=== PATIENT | male | born 1980 | race Caucasian/White ===

== ENCOUNTER 2023-12-15 14:33 | Inpatient (IN) | payer MEDICARE, MEDICAID, SELFPAY ==
[2023-12-15 16:30] VITALS: BMI 66.4
[2023-12-15 18:00] VITALS: BP 165/75; PULSE 99; RESP 16; TEMP 36.7; O2SAT 95
[2023-12-15 18:36] LABS: Neut%MD 58.4 %; Neutrophils Absolute Auto 6.1 x10*3/uL (2.0-8.3); WBCANC 10.4 X10*3/uL
--- NOTE | 2023-12-15 18:49 | PC.NURSE ---
Provider documentation supervisor must update REMS on this patient.
[2023-12-15] MEDS: Benztropine Mesylate 0.5 MG TABLET PO (23:21)
[2023-12-15] MEDS: cloZAPine 25 MG TABLET PO (23:21)
--- NOTE | 2023-12-15 23:24 | PC.ADMIT ---
Patient is a 43 year old single Setswana speaking male admitted as a CV admission to at 1445 and placed on 5 minute safety checks. Patient was pleasant and was cooperative with skin check. He was medically cleared in the ED at [facility], evaluated by [facility] and deemed in need of IPLOC secondary to paranoia that his mother is trying to poison him. The patient also believes his mother is trying to kill his father by poisoning him with vitamins. The father in 2019. Patient has a history of IPLOC at other hospitals, per his intake assessment. Patient said he was on M5 about 10 years ago . Medication compliance is questionable as patient unable to give the name of current meds and doses. When this racebook writer called the pharmacies he stated, [facility] and [facility], no current meds were noted at either pharmacy. He also said that he was not having any AH or VH, denied SI or HI. He ate dinner and said he was tired and went to bed. This racebook writer tried several times to get patient up to sign ROL, do the safety tool and sign a treatment plan. Each time the patient stated Just give me five minutes and I'll come out. He did take his HS medications. Patient denied any acute health issues. He has allergy to Haldol listed, but he also mentioned, in passing, an allergy to Seroquel. This needs to be verified with the patient when he is more awake.
[2023-12-16] MEDS: Acetaminophen 325 MG TABLET 650 MG PO (06:10)
[2023-12-16 07:31] LABS: MANUAL DIFF FLAG NO
[2023-12-16 07:35] LABS: Basophils Absolute Auto 0.1 X10*3/uL (0.0-0.2); Basophils Percent Auto 0.9 % (0-2); Eosinophils Absolute Auto 0.4 X10*3/uL (0.0-0.4); Eosinophils Percent Auto 3.9 % (0-4); Hematocrit 47.3 % (42.0-52.0); Hemoglobin 15.6 g/dl (14.0-18.0); Imm Gran Abs Auto 0.07 X10*3/uL (0.00-0.03); Imm Gran Pct Auto 0.8 % (0.0-0.4); Lymphocytes Absolute Auto 2.3 X10*3/uL (1.2-4.9); Lymphocytes Percent Auto 24.5 % (20-40); Mean Corpuscular Hemoglobin 28.8 pg (27.0-33.0); Mean Corpuscular Volume 87.4 fL (80.0-98.0); Mean Platelet Volume 9.3 fL (9.4-12.4); Monocytes Absolute Auto 0.7 X10*3/uL (0.1-1.2); Monocytes Percent Auto 7.8 % (2-11); Neutrophils Absolute Auto 5.8 x10*3/uL (2.0-8.3); Neutrophils Percent Auto 62.1 % (45-73); Platelet Count 332 X10*3/uL (160-400); Red Blood Count 5.41 X10*6/uL (4.60-5.80); Red Cell Distribution Width 13.1 % (11.0-16.0); White Blood Count 9.3 X10*3/uL (4.8-10.8)
[2023-12-16 08:00] VITALS: BP 134/88; PULSE 93; RESP 18; TEMP 36.4; O2SAT 90
[2023-12-16] MEDS: hydrOXYzine HCL 25 MG TABLET PO (08:12)
[2023-12-16 08:13] LABS: Alanine Aminotransferase 35 U/L (0-40); Alkaline Phosphatase 52 U/L (39-117); Anion Gap 14 (12-20); Aspartate Amino Transferase 23 U/L (5-37); Bilirubin Direct 0.2 mg/dL (0.0-0.5); Bilirubin Total 0.3 mg/dL (0.0-1.0); Blood Urea Nitrogen 12 mg/dL (9-16); Calcium 9.8 mg/dL (8.4-10.2); Carbon Dioxide 26 mmol/L (22-29); Chloride 104 mmol/L (96-108); Cholesterol 161 mg/dL (<200); Creatinine Clr Calc Pharmacy 217.9; Estimated Glomerular Filt Rate > 60; Glucose Fasting 90 mg/dL (60-99); HDL Cholesterol 39 mg/dL (>40); LDL Cholesterol Calculated 107 mg/dL (<100); Potassium 4.3 mmol/L (3.3-5.1); Sodium 140 mmol/L (135-145); Total Protein 7.4 g/dL (6.5-8.0); Triglycerides 78 mg/dL (<150)
[2023-12-16 08:28] LABS: Thyroid Stimulating Hormone 1.31 uIU/mL (0.32-4.0)
[2023-12-16 08:33] LABS: Estimated Average Glucose 114 mg/dL; Hemoglobin A1c % 5.6 % (<6.0)
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
[2023-12-16] MEDS: clonazePAM 1 MG TABLET PO (13:11)
[2023-12-16 17:50] VITALS: BP 138/63; PULSE 99; RESP 16; TEMP 36.8; O2SAT 99
--- NOTE | 2023-12-16 19:24 | HO.PM.IMCN ---
History of Present Illness Data of Consult Service Date: 12/16/23 Primary Care Provider: Beatriz Babcock MD [facility] Reason for consult: Admission H&P Pt is a 43-year-old male with a PMH significant for?schizophrenia and anxiety who is admitted to M5 psychiatry unit for paranoia and flight of ideas. Patient apparently believes that his mother was trying to poison him with medications that she was buying off the Internet. Patient also believed that his mother was attempting to kill his father by poisoning him with vitamins, though father in 2019. Medical consult for admission H&P. ?Patient seen and evaluated in room or patient is lying face down in bed with his head propped against the wall. Patient initially answers a few questions stating he has no PMH other than schizophrenia and anxiety. Denies any medical diagnoses and denies he is on any medical prescriptions. Patient denies any current medical complaints but refuses to answer any specific questions, saying he would like to be left so that he can try to sleep. Labs reviewed, grossly unremarkable. Review of Systems Review of Systems: Patient has no acute medical complaints at this time [facility] Social History Household Members: Family Housing: House Do you presently have visiting nurse or other home services: No Patient Tobacco Use Status: Current everyday Tobacco user Tobacco use type: Cigarette Cigarette Packs Per Day: 0.25 Cigarettes Per Day: 5.0 Years Smoked: 25 Smoked in Last 30 Days: Yes e-Cigarette/Vaping Use: Never Used Patient Interested in Nicotine Replacement: No (pt said I don't need it ) Patient Given Instructions on How to Stop Smoking: Yes Date Education Initiated: 12/15/23 Second Hand Smoke Exposure: No Use of substances other than those prescribed or required for medical reasons: No Currently Displaying Signs/Symptoms of Drug Intoxication Withdrawal: No Have you been hit, kicked, punched, or otherwise hurt by someone within the past year? If so, by whom?: No Do you feel safe in your current relationship?: No Current Relationship Is there a partner from a previous relationship who is making you feel unsafe now?: No Spiritual Healthcare Practices: unknown Restorationist Healthcare Practices: unknown Cultural Healthcare Practices: unknown Advance Directives: No Advance Directives Information Provided: No Do you have thoughts of harming others: None Do you have a plan to hurt others: No Plan Recently lost weight without trying: No Nutrition Risks: No Nutritional Risk Poor oral hygiene: No Meds Allergies Allergy/AdvReac Type Severity Reaction Status Date / Time haloperidol [From Haldol] AdvReac Unknown Unknown Unverified 12/15/23 15:13 Active Medications: Current Medications Acetaminophen (Acetaminophen 325 Mg Tablet) 650 mg PO Q6H PRN PRN Reason: Headache/Pain Mild Scale (1-3) Last Admin: 12/16/23 06:10 Dose: 650 mg Al Hydroxide/Mg Hydroxide (Magnesium Hydrox/Alum Hydrox 30 Ml Oral.Susp) 30 ml PO Q6H PRN PRN Reason: Heartburn/Nausea Benztropine Mesylate (Benztropine Mesylate 0.5 Mg Tablet) 0.5 mg PO BEDTIME JOCELIN Last Admin: 12/15/23 23:21 Dose: 0.5 mg Clonazepam (Clonazepam 1 Mg Tablet) 1 mg PO BID PRN PRN Reason: Anxiety Last Admin: 12/16/23 13:11 Dose: 1 mg Clozapine (Clozapine 25 Mg Tablet) 25 mg PO BEDTIME JOCELIN Last Admin: 12/15/23 23:21 Dose: 25 mg Hydroxyzine HCl (Hydroxyzine Hcl 25 Mg Tablet) 25 mg PO Q6H PRN PRN Reason: Anxiety Last Admin: 12/16/23 08:12 Dose: 25 mg Magnesium Hydroxide (Milk Of Magnesia 30 Ml Oral.Susp) 30 ml PO DAILY PRN PRN Reason: Constipation Olanzapine (Olanzapine 5 Mg Tablet) 5 mg PO TID PRN PRN Reason: agitation Trazodone HCl (Trazodone Hcl 50 Mg Tablet) 50 mg PO BEDTIME MRX1 PRN PRN Reason: Insomnia Physical Exam Vital Signs and Narrative: Vital Signs: Last Vital Signs Temp 98.2 F 12/16/23 17:50 Pulse 99 12/16/23 17:50 Resp 16 12/16/23 17:50 BP 138/63 12/16/23 17:50 Pulse Ox 99 12/16/23 17:50 O2 Del Method Room Air 12/16/23 17:50 BMI result Body Mass Index 66.4 Patient refuses to participate in physical exam Not in acute distress, speaking in full sentences Was seen to move all 4 extremities spontaneously Results Labs 12/16/23 07:18 12/16/23 07:18 Labs: Laboratory Results - last 24 hr 12/16/23 07:18 MCV 87.4 MCH 28.8 MCHC 33.0 RDW 13.1 Plt Count 332 MPV 9.3 L Immature Gran % (Auto) 0.8 H Neut % (Auto) 62.1 Lymph % (Auto) 24.5 [place] % (Auto) 7.8 Eos % (Auto) 3.9 Baso % (Auto) 0.9 Lymph # (Auto) 2.3 [place] # (Auto) 0.7 Eos # (Auto) 0.4 Baso # (Auto) 0.1 Abs Immat Gran (auto) 0.07 H Absolute Neuts (auto) 5.8 Absolute Nucleated RBC 0.000 Nucleated RBC % (auto) 0.0 Anion Gap 14 Estim Creat Clear Calc 217.9 Estimated GFR > 60 Fasting Glucose 90 Estimat Average Glucose 114 Hemoglobin A1c % 5.6 Calcium 9.8 Total Bilirubin 0.3 Direct Bilirubin 0.2 AST 23 ALT 35 Alkaline Phosphatase 52 Total Protein 7.4 Albumin 4.0 Triglycerides 78 Cholesterol 161 LDL Cholesterol, Calc 107 H HDL Cholesterol 39 L TSH 1.31 Assessment and Plan (1) Medical clearance for psychiatric admission: Status: Acute Plan Pt is a 43-year-old male with a PMH significant for?schizophrenia and anxiety who is admitted to M5 psychiatry unit for paranoia and flight of ideas. Patient apparently believes that his mother was trying to poison him with medications that she was buying off the Internet. Patient also believed that his mother was attempting to kill his father by poisoning him with vitamins, though father in 2019. Medical consult for admissio Mood disorder Plan as per Psychiatry Patient otherwise denies any chronic medical conditions or acute medical complaints at this time. Thank you for allowing us to participate in the care of this patient. Signing off at this time. Please re-consult if any acute complaints or issues arise.
[2023-12-16] MEDS: cloZAPine 25 MG TABLET PO (20:48)
[2023-12-16] MEDS: Benztropine Mesylate 0.5 MG TABLET PO (20:48)
[2023-12-17] MEDS: Acetaminophen 325 MG TABLET 650 MG PO (06:32)
[2023-12-17] MEDS: hydrOXYzine HCL 25 MG TABLET PO ×2 (08:17→15:37)
[2023-12-17 09:04] VITALS: BP 144/82; PULSE 86; RESP 18; TEMP 36.7; O2SAT 95
[2023-12-17] MEDS: clonazePAM 1 MG TABLET PO ×2 (10:41→15:37)
--- NOTE | 2023-12-17 17:37 | HO.PSYCHPN ---
Subjective Subjective Date of Service: 12/17/23 Reason For Visit: unspecified schizophrenia Subjective Notes: Conditional Voluntary Healthcare Proxy: No Guardianship: No Medical Problems Affecting Mental Status: No Interim History: Pt reviewed precipitants to admission. Review of medications. States, by history, 300 mg Clozapine daily is most helpful. Describes his belief that his mother had been giving him medications she purchased from the internet prior to admission. He believes she was trying to harm him in not giving him what his out patient doctor ordered. As a result, he asks that we clarify his guardianship status. He would like to live with a friend and return to work, taking medication, as you order for me. Engaged with peers and miliieu-offers support and help to peers, attentive to others, I want to be helpful while I am here, I am grateful all of you are helping me and I want to return this. Medication Compliance: Yes Side effects from medications: No Attending Groups: Intermittent Review of Systems Acute medical concerns: No Medical Review of Systems: unchanged Review of Systems Review of Systems Yes all other systems are reviewed and are negative Mental Status Exam Mental Status Exam Patient Appearance: Disheveled Patient Orientation: Person, Place, Time and Situation Level of Consciousness: Awake and Appropriate Patient Behavior: Appropriate, Talkative and Cooperative Mood Description: Anxious Affect Description: Appropriate Patient Cognition Impaired: No Ability to Follow Directions: Good Speech Pattern: Perseverating and Spontaneous Speech Memory Description: Episodic Impaired Hallucinations: None Delusions: Paranoid Ideation Perceptual Disturbances: Depersonalization Thought Process: Illogical Thought Content: positive for Perseveration and positive for Preoccupation Depressive Symptoms: Increased Anxiety Judgement: Fair Diagnostics Vital Signs (24Hr): Vital Signs - 24 hr 12/16/23 17:50 12/17/23 09:04 Temperature 98.2 F 98.1 F Pulse Rate 99 86 Respiratory Rate 16 18 Blood Pressure 138/63 144/82 H Pulse Oximetry 99 95 Oxygen Delivery Method Room Air Room Air BMI result Body Mass Index 66.4 Labs 12/16/23 07:18 12/16/23 07:18 Labs: Laboratory Results - last 48 hr 12/15/23 12/16/23 18:22 07:18 WBC 9.3 RBC 5.41 Hgb 15.6 Hct 47.3 MCV 87.4 MCH 28.8 MCHC 33.0 RDW 13.1 Plt Count 332 MPV 9.3 L Immature Gran % (Auto) 0.8 H Neut % (Auto) 62.1 Lymph % (Auto) 24.5 [place] % (Auto) 7.8 Eos % (Auto) 3.9 Baso % (Auto) 0.9 Lymph # (Auto) 2.3 [place] # (Auto) 0.7 Eos # (Auto) 0.4 Baso # (Auto) 0.1 Abs Immat Gran (auto) 0.07 H Absolute Neuts (auto) 6.1 5.8 Absolute Nucleated RBC 0.000 Nucleated RBC % (auto) 0.0 Sodium 140 Potassium 4.3 Chloride 104 Carbon Dioxide 26 Anion Gap 14 BUN 12 Creatinine 0.83 Estim Creat Clear Calc 217.9 Estimated GFR > 60 Fasting Glucose 90 Estimat Average Glucose 114 Hemoglobin A1c % 5.6 Calcium 9.8 Total Bilirubin 0.3 Direct Bilirubin 0.2 AST 23 ALT 35 Alkaline Phosphatase 52 Total Protein 7.4 Albumin 4.0 Triglycerides 78 Cholesterol 161 LDL Cholesterol, Calc 107 H HDL Cholesterol 39 L TSH 1.31 Medications Medications Current Medications Acetaminophen (Acetaminophen 325 Mg Tablet) 650 mg PO Q6H PRN PRN Reason: Headache/Pain Mild Scale (1-3) Last Admin: 12/17/23 06:32 Dose: 650 mg Al Hydroxide/Mg Hydroxide (Magnesium Hydrox/Alum Hydrox 30 Ml Oral.Susp) 30 ml PO Q6H PRN PRN Reason: Heartburn/Nausea Ascorbic Acid (Ascorbic Acid 250 Mg Tablet) 250 mg PO DAILY JOCELIN Benztropine Mesylate (Benztropine Mesylate 0.5 Mg Tablet) 0.5 mg PO BEDTIME JOCELIN Last Admin: 12/16/23 20:48 Dose: 0.5 mg Clonazepam (Clonazepam 1 Mg Tablet) 1 mg PO BID PRN PRN Reason: Anxiety Last Admin: 12/17/23 15:37 Dose: 1 mg Clozapine (Clozapine 25 Mg Tablet) 25 mg PO BEDTIME JOCELIN Last Admin: 12/16/23 20:48 Dose: 25 mg Hydroxyzine HCl (Hydroxyzine Hcl 25 Mg Tablet) 25 mg PO Q6H PRN PRN Reason: Anxiety Last Admin: 12/17/23 15:37 Dose: 25 mg Magnesium Hydroxide (Milk Of Magnesia 30 Ml Oral.Susp) 30 ml PO DAILY PRN PRN Reason: Constipation Olanzapine (Olanzapine 5 Mg Tablet) 5 mg PO TID PRN PRN Reason: agitation Trazodone HCl (Trazodone Hcl 50 Mg Tablet) 50 mg PO BEDTIME MRX1 PRN PRN Reason: Insomnia Allergies Allergies Allergy/AdvReac Type Severity Reaction Status Date / Time haloperidol [From Haldol] AdvReac Unknown Unknown Unverified 12/15/23 15:13 Assessment & Plan Assessment & Plan (1) Schizophrenia, paranoid, chronic with acute exacerbation: Status: Acute Code(s): F20.0 - Paranoid schizophrenia Assessment and Plan: 12/17/23- Continue Clozapine titration. Plan Pt is a 43-year-old male with a PMH significant for?schizophrenia and anxiety who is admitted to M5 psychiatry unit for paranoia and flight of ideas. Patient apparently believes that his mother was trying to poison him with medications that she was buying off the Internet. Patient also believed that his mother was attempting to kill his father by poisoning him with vitamins, though father in 2019. Medical consult for admissio Mood disorder Plan as per Psychiatry Patient otherwise denies any chronic medical conditions or acute medical complaints at this time. Thank you for allowing us to participate in the care of this patient. Signing off at this time. Please re-consult if any acute complaints or issues arise. Patient educated on: medication risk/benefits and therapeutic strategies Informed Consent: understands and further education needed Reason for continued inpatient stay Substantial Risk for: rapid decompensation Time Spent With Patient Time: Total time managing care of this patient today ____ minutes.
[2023-12-17 19:45] VITALS: BP 146/89; PULSE 95; RESP 18; TEMP 36.7; O2SAT 93
[2023-12-17] MEDS: traZODone HCL 50 MG TABLET PO (21:17)
[2023-12-17] MEDS: Benztropine Mesylate 0.5 MG TABLET PO (21:17)
[2023-12-17] MEDS: cloZAPine 25 MG TABLET 50 MG PO (21:17)
[2023-12-18] MEDS: Acetaminophen 325 MG TABLET 650 MG PO (05:14)
[2023-12-18 08:00] VITALS: BP 139/93; PULSE 89; RESP 18; TEMP 36.6; O2SAT 94
[2023-12-18] MEDS: clonazePAM 1 MG TABLET PO ×2 (08:21→17:33)
[2023-12-18] MEDS: Ascorbic Acid 250 MG TABLET PO (08:21)
--- NOTE | 2023-12-18 09:54 | P.PNPSI_ITS ---
Subjective Subjective Date of Service: 12/18/23 Reason For Visit: unspecified schizophrenia Subjective Notes: Conditional Voluntary Healthcare Proxy: No Guardianship: Yes (??) Medical Problems Affecting Mental Status: No Interim History: Pt discussed current concerns about his mother, mother's changes to his medications, guardianship and the status of guardianship and his quality assurance representative payee status. He asks that we provide him with some information. Visable and interactive with team and in the milieu today. 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 Tolerating Clozapine titration. Medication Compliance: Yes Side effects from medications: No Attending Groups: Yes Review of Systems Acute medical concerns: No Medical Review of Systems: unchanged Review of Systems Review of Systems Yes all other systems are reviewed and are negative Mental Status Exam Mental Status Exam Patient Appearance: Disheveled Patient Orientation: Person, Place, Time and Situation Level of Consciousness: Awake and Appropriate Patient Behavior: Appropriate, Talkative and Cooperative Mood Description: Anxious Affect Description: Appropriate Patient Cognition Impaired: No Ability to Follow Directions: Good Speech Pattern: Perseverating and Spontaneous Speech Memory Description: Episodic Impaired Hallucinations: None Delusions: Paranoid Ideation Perceptual Disturbances: Depersonalization Thought Process: Illogical Thought Content: positive for Perseveration and positive for Preoccupation Depressive Symptoms: Increased Anxiety Judgement: Fair Diagnostics Vital Signs (24Hr): Vital Signs - 24 hr 12/17/23 19:45 12/18/23 08:00 Temperature 98.0 F 97.9 F Pulse Rate 95 89 Respiratory Rate 18 18 Blood Pressure 146/89 H 139/93 H Pulse Oximetry 93 94 Oxygen Delivery Method Room Air Room Air BMI result Body Mass Index 66.4 Labs 12/16/23 07:18 12/16/23 07:18 Medications Medications Current Medications Acetaminophen (Acetaminophen 325 Mg Tablet) 650 mg PO Q6H PRN PRN Reason: Headache/Pain Mild Scale (1-3) Last Admin: 12/18/23 05:14 Dose: 650 mg Al Hydroxide/Mg Hydroxide (Magnesium Hydrox/Alum Hydrox 30 Ml Oral.Susp) 30 ml PO Q6H PRN PRN Reason: Heartburn/Nausea Ascorbic Acid (Ascorbic Acid 250 Mg Tablet) 250 mg PO DAILY [facility] Last Admin: 12/18/23 08:21 Dose: 250 mg Benztropine Mesylate (Benztropine Mesylate 0.5 Mg Tablet) 0.5 mg PO BEDTIME [facility] Last Admin: 12/17/23 21:17 Dose: 0.5 mg Clonazepam (Clonazepam 1 Mg Tablet) 1 mg PO BID PRN PRN Reason: Anxiety Last Admin: 12/18/23 08:21 Dose: 1 mg Clozapine (Clozapine 25 Mg Tablet) 50 mg PO BEDTIME [facility] Last Admin: 12/17/23 21:17 Dose: 50 mg Hydroxyzine HCl (Hydroxyzine Hcl 25 Mg Tablet) 25 mg PO Q6H PRN PRN Reason: Anxiety Last Admin: 12/17/23 15:37 Dose: 25 mg Magnesium Hydroxide (Milk Of Magnesia 30 Ml Oral.Susp) 30 ml PO DAILY PRN PRN Reason: Constipation Olanzapine (Olanzapine 5 Mg Tablet) 5 mg PO TID PRN PRN Reason: agitation Trazodone HCl (Trazodone Hcl 50 Mg Tablet) 50 mg PO BEDTIME MRX1 PRN PRN Reason: Insomnia Last Admin: 12/17/23 21:17 Dose: 50 mg Allergies Allergies Allergy/AdvReac Type Severity Reaction Status Date / Time haloperidol [From Haldol] AdvReac Unknown Unknown Unverified 12/15/23 15:13 Assessment & Plan Assessment & Plan (1) Schizophrenia, paranoid, chronic with acute exacerbation: Status: Acute Code(s): F20.0 - Paranoid schizophrenia Assessment and Plan: 12/18/23- Increase Clozapine to 75 mg HS. Plan Pt is a 43-year-old male with a PMH significant for?schizophrenia and anxiety who is admitted to [facility] for paranoia and flight of ideas. Patient apparently believes that his mother was trying to poison him with medications that she was buying off the Internet. Patient also believed that his mother was attempting to kill his father by poisoning him with vitamins, though father in 2019. Medical consult for admissio Mood disorder Plan as per Psychiatry Patient otherwise denies any chronic medical conditions or acute medical complaints at this time. Thank you for allowing us to participate in the care of this patient. Signing off at this time. Please re-consult if any acute complaints or issues arise. Patient educated on: medication risk/benefits and therapeutic strategies Informed Consent: understands and further education needed Reason for continued inpatient stay Substantial Risk for: rapid decompensation Time Spent With Patient Time: Total time managing care of this patient today ____ minutes.
[2023-12-18 20:41] VITALS: BP 147/83; PULSE 85; RESP 18; TEMP 36.4; O2SAT 94
[2023-12-18] MEDS: traZODone HCL 50 MG TABLET PO (20:45)
[2023-12-18] MEDS: Benztropine Mesylate 0.5 MG TABLET PO (20:45)
[2023-12-18] MEDS: cloZAPine 25 MG TABLET 75 MG PO (20:45)
[2023-12-19] MEDS: Acetaminophen 325 MG TABLET 650 MG PO (07:01)
[2023-12-19 08:20] VITALS: BP 147/83; PULSE 90; RESP 18; TEMP 36.7; O2SAT 92
[2023-12-19] MEDS: Ascorbic Acid 250 MG TABLET PO (08:20)
[2023-12-19] MEDS: hydrOXYzine HCL 25 MG TABLET PO (08:41)
[2023-12-19] MEDS: clonazePAM 1 MG TABLET PO ×2 (08:41→16:34)
--- NOTE | 2023-12-19 13:32 | HO.PSYCHPN ---
Subjective Subjective Date of Service: 12/19/23 Reason For Visit: unspecified schizophrenia Subjective Notes: Conditional Voluntary Healthcare Proxy: No Guardianship: No Medical Problems Affecting Mental Status: No Interim History: Tolerating Clozapine titration. Valentin continues to discuss his concerns about his mother purchasing medicines on the internet. We discussed his concerns about being poisoned and reviewed his labs. Discussed what is possible to test for and time constraints from admit date. He reports no adverse effects, denies feeling ill. Attempted to reassure him and continue monitoring. Medication Compliance: Yes Side effects from medications: No Review of Systems Acute medical concerns: No Medical Review of Systems: unchanged Review of Systems Review of Systems Yes all other systems are reviewed and are negative Mental Status Exam Mental Status Exam Patient Appearance: Disheveled Patient Orientation: Person, Place, Time and Situation Level of Consciousness: Awake and Appropriate Patient Behavior: Appropriate, Talkative and Cooperative Mood Description: Anxious Affect Description: Appropriate Patient Cognition Impaired: No Ability to Follow Directions: Good Speech Pattern: Perseverating and Spontaneous Speech Memory Description: Episodic Impaired Hallucinations: None Delusions: Paranoid Ideation Perceptual Disturbances: Depersonalization Thought Process: Illogical Thought Content: positive for Perseveration and positive for Preoccupation Depressive Symptoms: Increased Anxiety Judgement: Fair Diagnostics Vital Signs (24Hr): Vital Signs - 24 hr 12/18/23 20:41 12/19/23 08:20 Temperature 97.6 F 98.1 F Pulse Rate 85 90 Respiratory Rate 18 18 Blood Pressure 147/83 H 147/83 H Pulse Oximetry 94 92 Oxygen Delivery Method Room Air Room Air BMI result Body Mass Index 66.4 Labs 12/16/23 07:18 12/16/23 07:18 Medications Medications Current Medications Al Hydroxide/Mg Hydroxide (Magnesium Hydrox/Alum Hydrox 30 Ml Oral.Susp) 30 ml PO Q6H PRN PRN Reason: Heartburn/Nausea Ascorbic Acid (Ascorbic Acid 250 Mg Tablet) 250 mg PO DAILY [facility] Last Admin: 12/19/23 08:20 Dose: 250 mg Benztropine Mesylate (Benztropine Mesylate 0.5 Mg Tablet) 0.5 mg PO BEDTIME [facility] Last Admin: 12/18/23 20:45 Dose: 0.5 mg Clonazepam (Clonazepam 1 Mg Tablet) 1 mg PO BID PRN PRN Reason: Anxiety Last Admin: 12/19/23 08:41 Dose: 1 mg Clozapine (Clozapine 25 Mg Tablet) 75 mg PO BEDTIME [facility] Last Admin: 12/18/23 20:45 Dose: 75 mg Hydroxyzine HCl (Hydroxyzine Hcl 25 Mg Tablet) 25 mg PO Q6H PRN PRN Reason: Anxiety Last Admin: 12/19/23 08:41 Dose: 25 mg Ibuprofen (Ibuprofen 600 Mg Tablet) 600 mg PO Q8H PRN PRN Reason: Pain, Mild (Pain Scale 1-3) Magnesium Hydroxide (Milk Of Magnesia 30 Ml Oral.Susp) 30 ml PO DAILY PRN PRN Reason: Constipation Olanzapine (Olanzapine 5 Mg Tablet) 5 mg PO TID PRN PRN Reason: agitation Trazodone HCl (Trazodone Hcl 50 Mg Tablet) 50 mg PO BEDTIME MRX1 PRN PRN Reason: Insomnia Last Admin: 12/18/23 20:45 Dose: 50 mg Allergies Allergies Allergy/AdvReac Type Severity Reaction Status Date / Time haloperidol [From Haldol] AdvReac Unknown Unknown Unverified 12/15/23 15:13 Assessment & Plan Assessment & Plan (1) Schizophrenia, paranoid, chronic with acute exacerbation: Status: Acute Code(s): F20.0 - Paranoid schizophrenia Assessment and Plan: 12/18/23- Increase Clozapine to 75 mg HS. 12/19/23- Continue tx. Plan Pt is a 43-year-old male with a PMH significant for?schizophrenia and anxiety who is admitted to [facility] for paranoia and flight of ideas. Patient apparently believes that his mother was trying to poison him with medications that she was buying off the Internet. Patient also believed that his mother was attempting to kill his father by poisoning him with vitamins, though father in 2019. Medical consult for admissio Mood disorder Plan as per Psychiatry Patient otherwise denies any chronic medical conditions or acute medical complaints at this time. Thank you for allowing us to participate in the care of this patient. Signing off at this time. Please re-consult if any acute complaints or issues arise. Patient educated on: medication risk/benefits Informed Consent: understands and further education needed Reason for continued inpatient stay Substantial Risk for: rapid decompensation Time Spent With Patient Time: Total time managing care of this patient today ____ minutes.
[2023-12-19] MEDS: Ibuprofen 600 MG TABLET PO (14:35)
[2023-12-19 18:00] VITALS: BP 167/83; PULSE 108; TEMP 36.3; O2SAT 95
[2023-12-19] MEDS: Benztropine Mesylate 0.5 MG TABLET PO (21:12)
[2023-12-19] MEDS: traZODone HCL 50 MG TABLET PO (21:12)
[2023-12-19] MEDS: cloZAPine 25 MG TABLET 75 MG PO (21:12)
[2023-12-20] MEDS: Ibuprofen 600 MG TABLET PO (06:21)
[2023-12-20] MEDS: Ascorbic Acid 250 MG TABLET PO (08:26)
[2023-12-20] MEDS: clonazePAM 1 MG TABLET PO (08:26)
[2023-12-20] MEDS: hydrOXYzine HCL 25 MG TABLET PO (08:26)
[2023-12-20 09:37] VITALS: BP 171/79; PULSE 91; RESP 18; TEMP 36.3; O2SAT 96
[2023-12-20 10:57] VITALS: BMI 68.3
--- NOTE | 2023-12-20 17:22 | HO.PSYCHPN ---
Subjective Subjective Date of Service: 12/20/23 Reason For Visit: unspecified schizophrenia Subjective Notes: Conditional Voluntary Healthcare Proxy: No Guardianship: No Medical Problems Affecting Mental Status: No Interim History: Pt experiencing sedation from increase in Clozaril. He is in agreement that we will slow down titration to avoid adverse effect, in consideration of his concerns about his mother medicating him improperly prior to admission. Medication Compliance: Yes Side effects from medications: No Attending Groups: Intermittent Review of Systems Acute medical concerns: No Medical Review of Systems: unchanged Review of Systems Review of Systems Yes all other systems are reviewed and are negative Mental Status Exam Mental Status Exam Patient Appearance: Disheveled Patient Orientation: Person, Place, Time and Situation Level of Consciousness: Awake and Appropriate Patient Behavior: Appropriate, Talkative and Cooperative Mood Description: Anxious Affect Description: Appropriate Patient Cognition Impaired: No Ability to Follow Directions: Good Speech Pattern: Perseverating and Spontaneous Speech Memory Description: Episodic Impaired Hallucinations: None Delusions: Paranoid Ideation Perceptual Disturbances: Depersonalization Thought Process: Illogical Thought Content: positive for Perseveration and positive for Preoccupation Depressive Symptoms: Increased Anxiety Judgement: Fair Diagnostics Vital Signs (24Hr): Vital Signs - 24 hr 12/19/23 18:00 12/20/23 09:37 Temperature 97.4 F 97.3 F Pulse Rate 108 H 91 Respiratory Rate 18 Blood Pressure 167/83 H 171/79 H Pulse Oximetry 95 96 Oxygen Delivery Method Room Air Room Air BMI result Body Mass Index 68.3 Labs 12/16/23 07:18 12/16/23 07:18 Medications Medications Current Medications Al Hydroxide/Mg Hydroxide (Magnesium Hydrox/Alum Hydrox 30 Ml Oral.Susp) 30 ml PO Q6H PRN PRN Reason: Heartburn/Nausea Ascorbic Acid (Ascorbic Acid 250 Mg Tablet) 250 mg PO DAILY [facility] Last Admin: 12/20/23 08:26 Dose: 250 mg Benztropine Mesylate (Benztropine Mesylate 0.5 Mg Tablet) 0.5 mg PO BEDTIME [facility] Last Admin: 12/19/23 21:12 Dose: 0.5 mg Clonazepam (Clonazepam 1 Mg Tablet) 1 mg PO BID PRN PRN Reason: Anxiety Last Admin: 12/20/23 08:26 Dose: 1 mg Clozapine (Clozapine 25 Mg Tablet) 75 mg PO BEDTIME [facility] Last Admin: 01/31/24 21:12 Dose: 75 mg Hydroxyzine HCl (Hydroxyzine Hcl 25 Mg Tablet) 25 mg PO Q6H PRN PRN Reason: Anxiety Last Admin: 12/20/23 08:26 Dose: 25 mg Ibuprofen (Ibuprofen 600 Mg Tablet) 600 mg PO Q8H PRN PRN Reason: Pain, Mild (Pain Scale 1-3) Last Admin: 12/20/23 06:21 Dose: 600 mg Magnesium Hydroxide (Milk Of Magnesia 30 Ml Oral.Susp) 30 ml PO DAILY PRN PRN Reason: Constipation Olanzapine (Olanzapine 5 Mg Tablet) 5 mg PO TID PRN PRN Reason: agitation Trazodone HCl (Trazodone Hcl 50 Mg Tablet) 50 mg PO BEDTIME MRX1 PRN PRN Reason: Insomnia Last Admin: 12/19/23 21:12 Dose: 50 mg Allergies Allergies Allergy/AdvReac Type Severity Reaction Status Date / Time haloperidol [From Haldol] AdvReac Unknown Unknown Unverified 12/15/23 15:13 Assessment & Plan Assessment & Plan (1) Schizophrenia, paranoid, chronic with acute exacerbation: Status: Acute Code(s): F20.0 - Paranoid schizophrenia Assessment and Plan: 12/18/23- Increase Clozapine to 75 mg HS. 12/20/23- Continue treatment. Plan Pt is a 43-year-old male with a PMH significant for?schizophrenia and anxiety who is admitted to [facility] for paranoia and flight of ideas. Patient apparently believes that his mother was trying to poison him with medications that she was buying off the Internet. Patient also believed that his mother was attempting to kill his father by poisoning him with vitamins, though father in 2019. Medical consult for admissio Mood disorder Plan as per Psychiatry Patient otherwise denies any chronic medical conditions or acute medical complaints at this time. Thank you for allowing us to participate in the care of this patient. Signing off at this time. Please re-consult if any acute complaints or issues arise. Patient educated on: medication risk/benefits Informed Consent: understands and further education needed Reason for continued inpatient stay Substantial Risk for: rapid decompensation Time Spent With Patient Time: Total time managing care of this patient today ____ minutes.
[2023-12-20 18:00] VITALS: BP 168/88; PULSE 97; RESP 18
[2023-12-20] MEDS: traZODone HCL 50 MG TABLET PO (20:58)
[2023-12-20] MEDS: Benztropine Mesylate 0.5 MG TABLET PO (20:58)
[2023-12-20] MEDS: cloZAPine 25 MG TABLET 75 MG PO (20:58)
[2023-12-21] MEDS: Ibuprofen 600 MG TABLET PO (06:28)
[2023-12-21 08:00] VITALS: BP 140/88; PULSE 95; RESP 18; TEMP 36.8; O2SAT 93
[2023-12-21] MEDS: Ascorbic Acid 250 MG TABLET PO (08:27)
[2023-12-21] MEDS: clonazePAM 1 MG TABLET PO ×2 (08:27→22:13)
[2023-12-21] MEDS: hydrOXYzine HCL 25 MG TABLET PO (08:29)
--- NOTE | 2023-12-21 16:15 | HO.PSYCHPN ---
Subjective Subjective Date of Service: 12/21/23 Reason For Visit: unspecified schizophrenia Subjective Notes: Conditional Voluntary Healthcare Proxy: No Guardianship: Yes Medical Problems Affecting Mental Status: No Interim History: Valentin is working on a puzzle this afternoon. He reports feeling improved. I feel less negative, but I told you the truth, my mother did try to hurt me with medicines on the internet States family will visit this afternoon as they are here due to the of his uncle. Pt has thought about our discussions regarding VNA, locked med boxes and believes they are a good idea. He is asking to have a discharge eval next week. Medication Compliance: Yes Side effects from medications: No Attending Groups: Intermittent Review of Systems Acute medical concerns: No Medical Review of Systems: unchanged Review of Systems Review of Systems Yes all other systems are reviewed and are negative Mental Status Exam Mental Status Exam Patient Appearance: Disheveled Patient Orientation: Person, Place, Time and Situation Level of Consciousness: Awake and Appropriate Patient Behavior: Appropriate, Talkative and Cooperative Mood Description: Anxious Affect Description: Appropriate Patient Cognition Impaired: No Ability to Follow Directions: Good Speech Pattern: Perseverating and Spontaneous Speech Memory Description: Episodic Impaired Hallucinations: None Delusions: Paranoid Ideation Perceptual Disturbances: Depersonalization Thought Process: Illogical Thought Content: positive for Perseveration and positive for Preoccupation Depressive Symptoms: Increased Anxiety Judgement: Fair Diagnostics Vital Signs (24Hr): Vital Signs - 24 hr 12/20/23 18:00 12/21/23 08:00 Temperature 98.2 F Pulse Rate 97 95 Respiratory Rate 18 18 Blood Pressure 168/88 H 140/88 H Pulse Oximetry 93 Oxygen Delivery Method Room Air Room Air BMI result Body Mass Index 68.3 Labs 12/16/23 07:18 12/16/23 07:18 Medications Medications Current Medications Al Hydroxide/Mg Hydroxide (Magnesium Hydrox/Alum Hydrox 30 Ml Oral.Susp) 30 ml PO Q6H PRN PRN Reason: Heartburn/Nausea Ascorbic Acid (Ascorbic Acid 250 Mg Tablet) 250 mg PO DAILY [facility] Last Admin: 12/21/23 08:27 Dose: 250 mg Benztropine Mesylate (Benztropine Mesylate 0.5 Mg Tablet) 0.5 mg PO BEDTIME [facility] Last Admin: 12/20/23 20:58 Dose: 0.5 mg Clonazepam (Clonazepam 1 Mg Tablet) 1 mg PO BID PRN PRN Reason: Anxiety Clozapine (Clozapine 25 Mg Tablet) 75 mg PO BEDTIME [facility] Last Admin: 12/20/23 20:58 Dose: 75 mg Hydroxyzine HCl (Hydroxyzine Hcl 25 Mg Tablet) 25 mg PO Q6H PRN PRN Reason: Anxiety Last Admin: 12/21/23 08:29 Dose: 25 mg Ibuprofen (Ibuprofen 600 Mg Tablet) 600 mg PO Q8H PRN PRN Reason: Pain, Mild (Pain Scale 1-3) Last Admin: 12/21/23 06:28 Dose: 600 mg Magnesium Hydroxide (Milk Of Magnesia 30 Ml Oral.Susp) 30 ml PO DAILY PRN PRN Reason: Constipation Olanzapine (Olanzapine 5 Mg Tablet) 5 mg PO TID PRN PRN Reason: agitation Trazodone HCl (Trazodone Hcl 50 Mg Tablet) 50 mg PO BEDTIME MRX1 PRN PRN Reason: Insomnia Last Admin: 12/20/23 20:58 Dose: 50 mg Allergies Allergies Allergy/AdvReac Type Severity Reaction Status Date / Time haloperidol [From Haldol] AdvReac Unknown Unknown Unverified 12/15/23 15:13 Assessment & Plan Assessment & Plan (1) Schizophrenia, paranoid, chronic with acute exacerbation: Status: Acute Code(s): F20.0 - Paranoid schizophrenia Assessment and Plan: 12/18/23- Increase Clozapine to 75 mg HS. 12/20/23- Continue treatment. 12/21/23- Increase Clozapine to 100 mg HS. Plan Pt is a 43-year-old male with a PMH significant for?schizophrenia and anxiety who is admitted to [facility] for paranoia and flight of ideas. Patient apparently believes that his mother was trying to poison him with medications that she was buying off the Internet. Patient also believed that his mother was attempting to kill his father by poisoning him with vitamins, though father in 2019. Medical consult for admissio Mood disorder Plan as per Psychiatry Patient otherwise denies any chronic medical conditions or acute medical complaints at this time. Thank you for allowing us to participate in the care of this patient. Signing off at this time. Please re-consult if any acute complaints or issues arise. Patient educated on: medication risk/benefits and therapeutic strategies Informed Consent: understands and further education needed Reason for continued inpatient stay Substantial Risk for: rapid decompensation Time Spent With Patient Time: Total time managing care of this patient today ____ minutes.
--- NOTE | 2023-12-21 17:15 | PC.NURSE ---
Patient's mother here to pass on information to staff. She said if patient takes Ativan it causes him to increase his food intake. She also said that when he got his food stamps he bought a large container of coffee and was putting large amounts of dry coffee into cups and adding hot water to drink it as coffee ; the mother says this causes the patient to get out of control and break things . The mother would like someone to speak with the patient about how dangerous large amounts of coffee is for him. Apparently the patient also has a history of taking up to 25 No Doz tablets at the same time. The mother also said that she gave [facility] the original guardian and Health Care Proxy papers. She asked if we would contact [facility] to obtain copies for his chart at .
[2023-12-21 18:00] VITALS: BP 158/87; PULSE 88; RESP 18; TEMP 37.1; O2SAT 95
[2023-12-21] MEDS: Benztropine Mesylate 0.5 MG TABLET PO (22:13)
[2023-12-21] MEDS: cloZAPine 100 MG TABLET PO (22:13)
[2023-12-21] MEDS: traZODone HCL 50 MG TABLET PO (22:13)
[2023-12-22] MEDS: Ascorbic Acid 250 MG TABLET PO (08:21)
[2023-12-22] MEDS: hydrOXYzine HCL 25 MG TABLET PO (08:21)
[2023-12-22] MEDS: clonazePAM 1 MG TABLET PO ×2 (08:21→21:18)
[2023-12-22 09:32] VITALS: BP 148/88; PULSE 104; RESP 18; TEMP 36.6; O2SAT 95
--- NOTE | 2023-12-22 10:58 | P.PNPSI_ITS ---
Subjective Subjective Date of Service: 12/22/23 Reason For Visit: unspecified schizophrenia Interim History: met with patient. Discussed with Nursing. Chart reviewed. Overall reports that things are going okay and feels that he is doing better. Denies hallucinations or overt delusions. Reported that he had lost touch with reality and was concerned that his mom was playing with his medications. Feels clozapine 100 mg has been helpful in particular sleep. Feeling safe and supported. No med concerns. Medication Compliance: Yes Side effects from medications: No Attending Groups: No Review of Systems Acute medical concerns: No Review of Systems Review of Systems Unremarkable Mental Status Exam Mental Status Exam Narrative: pleasant and engaged with health science writer. Fair self-care. Is concrete. Restricted affect. Denied SI or HI. Denies hallucinations. Less paranoid. Insight and judgment improving Diagnostics Vital Signs (24Hr): Vital Signs - 24 hr 12/21/23 18:00 12/22/23 09:32 Temperature 98.8 F 97.9 F Pulse Rate 88 104 H Respiratory Rate 18 18 Blood Pressure 158/87 H 148/88 H Pulse Oximetry 95 95 Oxygen Delivery Method Room Air Room Air BMI result Body Mass Index 68.3 Labs 12/16/23 07:18 12/16/23 07:18 Medications Medications Current Medications Al Hydroxide/Mg Hydroxide (Magnesium Hydrox/Alum Hydrox 30 Ml Oral.Susp) 30 ml PO Q6H PRN PRN Reason: Heartburn/Nausea Ascorbic Acid (Ascorbic Acid 250 Mg Tablet) 250 mg PO DAILY [facility] Last Admin: 12/22/23 08:21 Dose: 250 mg Benztropine Mesylate (Benztropine Mesylate 0.5 Mg Tablet) 0.5 mg PO BEDTIME [facility] Last Admin: 12/21/23 22:13 Dose: 0.5 mg Clonazepam (Clonazepam 1 Mg Tablet) 1 mg PO BID PRN PRN Reason: Anxiety Last Admin: 12/22/23 08:21 Dose: 1 mg Clozapine (Clozapine 100 Mg Tablet) 100 mg PO BEDTIME [facility] Last Admin: 12/21/23 22:13 Dose: 100 mg Hydroxyzine HCl (Hydroxyzine Hcl 25 Mg Tablet) 25 mg PO Q6H PRN PRN Reason: Anxiety Last Admin: 12/22/23 08:21 Dose: 25 mg Ibuprofen (Ibuprofen 600 Mg Tablet) 600 mg PO Q8H PRN PRN Reason: Pain, Mild (Pain Scale 1-3) Last Admin: 12/21/23 06:28 Dose: 600 mg Magnesium Hydroxide (Milk Of Magnesia 30 Ml Oral.Susp) 30 ml PO DAILY PRN PRN Reason: Constipation Olanzapine (Olanzapine 5 Mg Tablet) 5 mg PO TID PRN PRN Reason: agitation Trazodone HCl (Trazodone Hcl 50 Mg Tablet) 50 mg PO BEDTIME MRX1 PRN PRN Reason: Insomnia Last Admin: 12/21/23 22:13 Dose: 50 mg Allergies Allergies Allergy/AdvReac Type Severity Reaction Status Date / Time lorazepam AdvReac Intermediate appetite/intake Verified 12/21/23 17:48 increase haloperidol [From Haldol] AdvReac Unknown Unknown Unverified 12/15/23 15:13 Assessment & Plan Assessment & Plan (1) Schizophrenia, paranoid, chronic with acute exacerbation: Status: Acute Code(s): F20.0 - Paranoid schizophrenia Assessment and Plan: 12/18/23- Increase Clozapine to 75 mg HS. 12/20/23- Continue treatment. 12/21/23- Increase Clozapine to 100 mg HS. 3: no changes Plan Pt is a 43-year-old male with a PMH significant for?schizophrenia and anxiety who is admitted to [facility] for paranoia and flight of ideas. Patient apparently believes that his mother was trying to poison him with medications that she was buying off the Internet. Patient also believed that his mother was attempting to kill his father by poisoning him with vitamins, though father in 2019. Medical consult for admissio Mood disorder Plan as per Psychiatry Patient otherwise denies any chronic medical conditions or acute medical complaints at this time. Thank you for allowing us to participate in the care of this patient. Signing off at this time. Please re-consult if any acute complaints or issues arise. Reason for continued inpatient stay Substantial Risk for: rapid decompensation Time Spent With Patient Time: Total time managing care of this patient today ____ minutes.
[2023-12-22 18:00] VITALS: BP 167/88; PULSE 112; RESP 16; TEMP 36.1; O2SAT 94
[2023-12-22] MEDS: Benztropine Mesylate 0.5 MG TABLET PO (20:33)
[2023-12-22] MEDS: traZODone HCL 50 MG TABLET PO (20:33)
[2023-12-22] MEDS: cloZAPine 100 MG TABLET PO (20:33)
[2023-12-23 08:09] LABS: WBCANC 8.7 X10*3/uL
[2023-12-23 08:25] VITALS: BP 158/81; PULSE 101; RESP 18; TEMP 36.1; O2SAT 94
[2023-12-23] MEDS: Ascorbic Acid 250 MG TABLET PO (08:44)
[2023-12-23] MEDS: hydrOXYzine HCL 25 MG TABLET PO (08:44)
[2023-12-23] MEDS: clonazePAM 1 MG TABLET PO (08:44)
--- NOTE | 2023-12-23 12:15 | HO.PSYCHPN ---
Subjective Subjective Date of Service: 12/23/23 Reason For Visit: unspecified schizophrenia Interim History: Met with patient. Discussed with Nursing. Chart reviewed. Overall no changes from yesterday- things are going okay and feels that he is doing better. Clozapine helps with schizophrenia and anxiety. Denies hallucinations or overt delusions. Sleeping well. Feeling safe and supported. No med concerns. Medication Compliance: Yes Side effects from medications: No Attending Groups: Intermittent Review of Systems Acute medical concerns: No Review of Systems Review of Systems Unremarkable Mental Status Exam Mental Status Exam Narrative: pleasant and engaged with property underwriter. Fair self-care. Is concrete. Restricted affect. Denied SI or HI. Denies hallucinations. Denies paranoia. Insight and judgment improving Diagnostics Vital Signs (24Hr): Vital Signs - 24 hr 12/22/23 18:00 12/23/23 08:25 Temperature 97.0 F 97 F Pulse Rate 112 H 101 H Respiratory Rate 16 18 Blood Pressure 167/88 H 158/81 H Pulse Oximetry 94 94 Oxygen Delivery Method Room Air Room Air BMI result Body Mass Index 68.3 Labs 12/16/23 07:18 12/16/23 07:18 Labs: Laboratory Results - last 48 hr 12/23/23 07:36 Absolute Neuts (auto) 5.0 Medications Medications Current Medications Al Hydroxide/Mg Hydroxide (Magnesium Hydrox/Alum Hydrox 30 Ml Oral.Susp) 30 ml PO Q6H PRN PRN Reason: Heartburn/Nausea Ascorbic Acid (Ascorbic Acid 250 Mg Tablet) 250 mg PO DAILY [facility] Last Admin: 12/23/23 08:44 Dose: 250 mg Benztropine Mesylate (Benztropine Mesylate 0.5 Mg Tablet) 0.5 mg PO BEDTIME [facility] Last Admin: 12/22/23 20:33 Dose: 0.5 mg Clonazepam (Clonazepam 1 Mg Tablet) 1 mg PO BID PRN PRN Reason: Anxiety Last Admin: 12/23/23 08:44 Dose: 1 mg Clozapine (Clozapine 100 Mg Tablet) 100 mg PO BEDTIME [facility] Last Admin: 12/22/23 20:33 Dose: 100 mg Hydroxyzine HCl (Hydroxyzine Hcl 25 Mg Tablet) 25 mg PO Q6H PRN PRN Reason: Anxiety Last Admin: 12/23/23 08:44 Dose: 25 mg Ibuprofen (Ibuprofen 600 Mg Tablet) 600 mg PO Q8H PRN PRN Reason: Pain, Mild (Pain Scale 1-3) Last Admin: 12/21/23 06:28 Dose: 600 mg Magnesium Hydroxide (Milk Of Magnesia 30 Ml Oral.Susp) 30 ml PO DAILY PRN PRN Reason: Constipation Olanzapine (Olanzapine 5 Mg Tablet) 5 mg PO TID PRN PRN Reason: agitation Trazodone HCl (Trazodone Hcl 50 Mg Tablet) 50 mg PO BEDTIME MRX1 PRN PRN Reason: Insomnia Last Admin: 12/22/23 20:33 Dose: 50 mg Allergies Allergies Allergy/AdvReac Type Severity Reaction Status Date / Time lorazepam AdvReac Intermediate appetite/intake Verified 12/21/23 17:48 increase haloperidol [From Haldol] AdvReac Unknown Unknown Unverified 12/15/23 15:13 Assessment & Plan Assessment & Plan (1) Schizophrenia, paranoid, chronic with acute exacerbation: Status: Acute Code(s): F20.0 - Paranoid schizophrenia Assessment and Plan: 12/18/23- Increase Clozapine to 75 mg HS. 12/20/23- Continue treatment. 12/21/23- Increase Clozapine to 100 mg HS. 2/3: no changes /4: no changes Plan Pt is a 43-year-old male with a PMH significant for?schizophrenia and anxiety who is admitted to [facility] psychiatry unit for paranoia and flight of ideas. Patient apparently believes that his mother was trying to poison him with medications that she was buying off the Internet. Patient also believed that his mother was attempting to kill his father by poisoning him with vitamins, though father in 2019. Medical consult for admissio Mood disorder Plan as per Psychiatry Patient otherwise denies any chronic medical conditions or acute medical complaints at this time. Thank you for allowing us to participate in the care of this patient. Signing off at this time. Please re-consult if any acute complaints or issues arise. Reason for continued inpatient stay Substantial Risk for: rapid decompensation Time Spent With Patient Time: Total time managing care of this patient today ____ minutes.
[2023-12-23] MEDS: Ibuprofen 600 MG TABLET PO (17:37)
[2023-12-23] MEDS: Benztropine Mesylate 0.5 MG TABLET PO (20:45)
[2023-12-23] MEDS: cloZAPine 100 MG TABLET PO (20:46)
[2023-12-23] MEDS: traZODone HCL 50 MG TABLET PO (20:55)
[2023-12-23 21:45] VITALS: BP 138/73; PULSE 93; TEMP 36.7
[2023-12-24] MEDS: clonazePAM 1 MG TABLET PO (08:31)
[2023-12-24] MEDS: Ibuprofen 600 MG TABLET PO ×2 (08:31→19:57)
[2023-12-24] MEDS: Ascorbic Acid 250 MG TABLET PO (08:31)
[2023-12-24 08:45] VITALS: BP 163/89; PULSE 105; TEMP 36.2; O2SAT 94
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
[2023-12-24 18:00] VITALS: BP 152/86; PULSE 105; RESP 18; TEMP 36.9; O2SAT 95
[2023-12-24] MEDS: traZODone HCL 50 MG TABLET PO (19:53)
[2023-12-24] MEDS: Benztropine Mesylate 0.5 MG TABLET PO (19:53)
[2023-12-24] MEDS: cloZAPine 100 MG TABLET PO (19:53)
[2023-12-25 08:00] VITALS: BP 151/86; PULSE 100; RESP 18; TEMP 36.1; O2SAT 94
[2023-12-25] MEDS: Ascorbic Acid 250 MG TABLET PO (08:05)
[2023-12-25] MEDS: clonazePAM 1 MG TABLET PO ×2 (08:05→20:04)
[2023-12-25] MEDS: hydrOXYzine HCL 25 MG TABLET PO (08:25)
[2023-12-25] MEDS: Ibuprofen 600 MG TABLET PO ×2 (08:25→20:04)
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
[2023-12-25 18:00] VITALS: BP 155/80; PULSE 99; RESP 18; TEMP 36.7; O2SAT 97
[2023-12-25] MEDS: traZODone HCL 50 MG TABLET PO (19:59)
[2023-12-25] MEDS: cloZAPine 100 MG TABLET PO (19:59)
[2023-12-25] MEDS: Benztropine Mesylate 0.5 MG TABLET PO (19:59)
[2023-12-26] MEDS: Ascorbic Acid 250 MG TABLET PO (08:08)
[2023-12-26] MEDS: clonazePAM 1 MG TABLET PO (08:08)
[2023-12-26 08:10] VITALS: BP 139/88; PULSE 98; RESP 18; TEMP 36.3; O2SAT 94
[2023-12-26] MEDS: Ibuprofen 600 MG TABLET PO (08:34)
[2023-12-26] MEDS: hydrOXYzine HCL 25 MG TABLET PO (08:35)
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
--- NOTE | 2023-12-31 11:32 | PM.PSYDC ---
DS: Providers Provider Date of Service: 12/26/23 Date of admission: 12/15/23 14:33 Date of discharge: 12/26/23 Primary care physician: Beatriz Babcock MD Admitting clinician: Christy Ochoa Attending physician on admission: Jorge A Quevedo Consults: 12/16/23 13:07 Consult to Hospitalist Routine Comment: Consulting Provider: Hospitalist Reason For Exam: new pt direct admit Attending physician on discharge: Jorge A Quevedo Discharging clinician: Vanessa Du DS: Diagnosis Discharge Diagnosis (1) Schizophrenia, paranoid, chronic with acute exacerbation: Status: Acute DS: Medications Discharge Medications Home Medications: Previous Rx's Medication Instructions Recorded ascorbic acid (vitamin C) 250 mg 250 mg PO DAILY #30 tabs 12/25/23 tablet benztropine 0.5 mg tablet 0.5 mg PO BEDTIME #30 tabs 12/25/23 clonazepam 1 mg tablet 1 mg PO BID PRN Anxiety #14 tabs 12/25/23 clozapine 100 mg tablet 100 mg PO BEDTIME #14 tabs 12/25/23 trazodone 50 mg tablet 50 mg PO BEDTIME MRX1 PRN Insomnia 12/25/23 #30 tabs Mental Status Exam Mental Status Exam Patient Appearance: Appropriate Patient Orientation: Person, Place, Time and Situation Level of Consciousness: Awake and Appropriate Patient Behavior: Appropriate, Talkative and Cooperative Mood Description: Calm Affect Description: Appropriate Patient Cognition Impaired: No Ability to Follow Directions: Good Speech Pattern: Spontaneous Speech Memory Description: Episodic Impaired Hallucinations: None Delusions: Not Present Perceptual Disturbances: Depersonalization Thought Process: Goal Oriented Thought Content: positive for Goal Oriented Judgement: Good DS: Summary Hospital Course Hospital Course: Admission to adult psychiatry for exacerbation of schizophrenia and belief that mother/family were purchasing his medications from the internet and causing him to have adverse responses. Medications were evaluated and restarted. Pt experienced no behavioral dyscontrol in the milieu and participated with peers and in milieu groups and activities. Discharge was scheduled, agreed upon by pt and family. Pt will return to out patient providers and will have VNA support to transition back to the community. Status at Discharge Functional status at discharge: independent ambulation Overall status at discharge: patient is back to baseline Time Spent with Patient Time attestation: Total time managing care of this patient today ____ minutes. Time spent: Greater than 30 minutes Discharge Plan Discharge Anticipated Discharge Date/Time: 12/26/23 12:00 Patient Disposition: Home, Self-Care Discharge Diagnosis: Schizophrenia Referrals: Dr. Rajat Alfredo: Mary Loudon [Other] - 01/01/24 4:00 pm (Hospital discharge appointment. Appointment is by tele-health (telephone)) Montrell Adkins Visiting RN [Other] - 12/27/23 [phone] The RN will be calling to set a visit time on 12/27/23. 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 ) Beatriz Babcock MD [Primary Care Provider] - (Per your request we have not forwarded your records to this provider nor have we scheduled a follow up appointment. ) Discharge Medications: New benztropine 0.5 mg Tablet 0.5 mg PO BEDTIME Qty: 30 0RF trazodone 50 mg Tablet 50 mg PO BEDTIME MRX1 PRN (Reason: Insomnia) Qty: 30 0RF clozapine 100 mg Tablet 100 mg PO BEDTIME Qty: 14 0RF clonazepam 1 mg Tablet 1 mg PO BID PRN (Reason: Anxiety) Qty: 14 0RF ascorbic acid (vitamin C) 250 mg Tablet 250 mg PO DAILY Qty: 30 0RF Discharge Orders: Discharge Order (Routine); Ordered 12/26/23 Ordered By: Vanessa Du Diet: Advance to usual diet Activity on Discharge: As tolerated Stand Alone Forms: Patient Portal Discharge page, Community Support Care Plan Goals: Mood and Behavioral Stabilization Health Concerns: Mood and Behavioral Stabilization Plan of Treatment: Attend scheduled appointments Take medications as directed Call/Return as needed Assessment: Pt interviewed prior to discharge and found to be fully oriented and without SI/HI. Pt has insight and demonstrates good judgment in terms of wanting to pursue treatment Pt is not in imminent risk of harm to self or others and has a safety plan that includes presenting to the closest ER or calling 911 if feeling unsafe. Pt has been observed closely by nursing and unit staff throughout admission. Pt has not engaged in any behaviors that suggest dangerousness to self or others and has demonstrated appropriate behaviors and impulse control. Discharge Date/Time: 12/26/23 11:41
== END 2023-12-26 11:41 | disposition home or self-care (01) | DRG 885 ==
PROVIDERS: Clinical Nurse Specialist Psychiatric/Mental Health; Psychiatry & Neurology Psychiatry; Admitting Provider Psychiatry & Neurology Psychiatry; PCP Family Medicine; Visit Provider Clinical Nurse Specialist Psychiatric/Mental Health, Adult
DX: F20.0 Paranoid schizophrenia (principal); F17.210 Nicotine dependence, cigarettes, uncomplicated; Z71.6 Tobacco abuse counseling; Z79.899 Other long term (current) drug therapy
CPT/HCPCS: 36415; 80053; 80061; 80076; 83036; 84443; 85025; 85048

== ENCOUNTER → 2023-12-15 14:33 | Outpatient (BNV) | payer MEDICARE, MEDICAID, SELFPAY | PROVIDERS: Admitting Provider Psychiatry & Neurology Psychiatry; PCP Family Medicine; Visit Provider Clinical Nurse Specialist Psychiatric/Mental Health | DX: F20.0 Paranoid schizophrenia (principal) | CPT/HCPCS: 90792; 99231; 99232; 99238; 99499 ==

== ENCOUNTER → 2023-12-15 14:33 | Outpatient (BNV) | payer MEDICARE, MEDICAID, SELFPAY | PROVIDERS: Admitting Provider Psychiatry & Neurology Psychiatry; PCP Family Medicine; Visit Provider Student in an Organized Health Care Education/Training Program | DX: Z02.2 Encounter for examination for admission to residential institution (principal) | CPT/HCPCS: 99429 ==

== ENCOUNTER 2025-02-06 11:26 | Emergency (ER) | payer MEDICARE, MEDICAID, SELFPAY ==
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
[2025-02-06 11:59] VITALS: BP 103/65; PULSE 91; RESP 16; TEMP 36.4; O2SAT 95; BMI 68.0
[2025-02-06 12:29] LABS: MANUAL DIFF FLAG NO
[2025-02-06 12:31] LABS: Basophils Absolute Auto 0.1 X10*3/uL (0.0-0.2); Basophils Percent Auto 0.8 % (0-2); Eosinophils Absolute Auto 0.3 X10*3/uL (0.0-0.4); Eosinophils Percent Auto 3.1 % (0-4); Hematocrit 43.7 % (42.0-52.0); Hemoglobin 15.2 g/dl (14.0-18.0); Imm Gran Abs Auto 0.07 X10*3/uL (0.00-0.03); Imm Gran Pct Auto 0.6 % (0.0-0.4); Lymphocytes Absolute Auto 2.2 X10*3/uL (1.2-4.9); Lymphocytes Percent Auto 20.1 % (20-40); Mean Corpuscular HGB Conc 34.8 g/dl (31.0-36.0); Mean Corpuscular Hemoglobin 29.5 pg (27.0-33.0); Mean Corpuscular Volume 84.9 fL (80.0-98.0); Mean Platelet Volume 9.2 fL (9.4-12.4); Monocytes Absolute Auto 0.8 X10*3/uL (0.1-1.2); Monocytes Percent Auto 7.3 % (2-11); Neutrophils Absolute Auto 7.4 x10*3/uL (2.0-8.3); Neutrophils Percent Auto 68.1 % (45-73); Platelet Count 335 X10*3/uL (160-400); Red Blood Count 5.15 X10*6/uL (4.60-5.80); Red Cell Distribution Width 13.1 % (11.0-16.0); White Blood Count 10.9 X10*3/uL (4.8-10.8)
[2025-02-06 12:50] LABS: Albumin Level 3.9 g/dL (3.5-5.0); Alkaline Phosphatase 53 U/L (39-117); Anion Gap 11 (12-20); Aspartate Amino Transferase 31 U/L (5-37); Bilirubin Direct 0.1 mg/dL (0.0-0.5); Bilirubin Total 0.3 mg/dL (0.0-1.0); Blood Urea Nitrogen 16 mg/dL (9-16); Calcium 9.2 mg/dL (8.4-10.2); Carbon Dioxide 23 mmol/L (22-29); Chloride 109 mmol/L (96-108); Creatinine Clr Calc Pharmacy 256.1; Estimated Glomerular Filt Rate > 60; Ethanol < 10 mg/dL; Glucose Random 101 mg/dL (60-115); Magnesium 1.9 mg/dL (1.6-2.6); Potassium 3.9 mmol/L (3.3-5.1); Sodium 139 mmol/L (135-145); Total Protein 7.6 g/dL (6.5-8.0)
[2025-02-06 13:05] LABS: Alanine Aminotransferase 42 U/L (0-40)
[2025-02-06 13:08] LABS: Influenza A PCR NEGATIVE (Negative); Influenza B PCR NEGATIVE (Negative); Resp Syncy Virus RNA Qual PCR NEGATIVE (Negative); SARS COV2 PCR INHOUSE NEGATIVE (Negative)
[2025-02-06 15:30] VITALS: BP 103/65; PULSE 91; RESP 16; TEMP 36.4; O2SAT 95
== END 2025-02-06 16:43 | disposition left against medical advice (07) ==
PROVIDERS: Physician Assistant; Emergency Provider Emergency Medicine
DX: R45.6 Violent behavior (principal); F17.210 Nicotine dependence, cigarettes, uncomplicated; R25.2 Cramp and spasm; Z51.81 Encounter for therapeutic drug level monitoring; Z79.899 Other long term (current) drug therapy; Z03.818 Encounter for observation for suspected exposure to other biological agents ruled out
CPT/HCPCS: 0241U; 36415; 80048; 80076; 80307; 82550; 83735; 85025; 99283